=== PATIENT | female | born 1985 | race Caucasian/White ===

== ENCOUNTER 2018-08-14 07:47 | Emergency (ER) | payer SELFPAY ==
[~2018-08-14] VITALS: Ht 172.7 cm; Wt 66.0 kg
[2018-08-14 08:04] VITALS: BP 135/69
[2018-08-14] MEDS ORDERED: ONDANSETRON HCL 4MG/2ML INJ IV STA (08:12)
== END 2018-08-14 08:55 | disposition left against medical advice (07) ==
LOC: ER 07:47
DX: R10.30 Lower abdominal pain, unspecified (principal); Z85.9 Personal history of malignant neoplasm, unspecified; Z88.4 Allergy status to anesthetic agent; Z88.8 Allergy status to other drugs, medicaments and biological substances
CPT/HCPCS: 99281; Z7610; J2405

== ENCOUNTER 2018-08-20 03:53 | Emergency (ER) | payer SELFPAY ==
[~2018-08-20] VITALS: Ht 170.2 cm; Wt 93.0 kg
[2018-08-20] MEDS ORDERED: ACETAMINOPHEN 325MG TABLET PO ONE (06:30)
[2018-08-20] MEDS ORDERED: FAMOTIDINE 20MG TABLET PO ONE (06:45)
[2018-08-20 06:49] VITALS: BP 101/60
[2018-08-20 07:01] LABS: CHLORIDE 111 mEq/L (98-107)
[2018-08-20 07:04] LABS: BASOPHILS % 0.8 % (0.0-2.0); EOSINOPHILS % 6.2 % (0.0-5.0); HEMATOCRIT. 26.5 % (36.0-48.0); HEMOGLOBIN. 8.7 g/dL (12.0-16.0); LYMPHOCYTES % 35.3 % (20.0-50.0); MEAN CORPUSCULAR HEMOGLOBIN 24.2 pg (28.0-32.0); MEAN PLATELET VOLUME 7.7 fl (7.4-10.4); MONOCYTES % 10.8 % (2.0-8.0); NEUTROPHILS % 46.9 % (40.0-76.0); PLATELET 232 x1000/uL (130-400); RED BLOOD CELL COUNT 3.59 mill/uL (4.2-5.4); RED CELL DISTRIBUTION WIDTH 18.3 % (11.6-14.6)
== END 2018-08-20 07:32 | disposition left against medical advice (07) ==
LOC: ER 04:19
DX: D64.9 Anemia, unspecified (principal); R10.13 Epigastric pain; Z59.0 Homelessness; Z88.6 Allergy status to analgesic agent; Z85.42 Personal history of malignant neoplasm of other parts of uterus; Z87.42 Personal history of other diseases of the female genital tract; Z87.19 Personal history of other diseases of the digestive system
CPT/HCPCS: 36415; 84484; 93005; 99284

== ENCOUNTER 2018-08-28 02:36 | Emergency (ER) | payer SELFPAY ==
[~2018-08-28] VITALS: Ht 165.1 cm; Wt 86.0 kg
[2018-08-28 03:32] VITALS: BP 105/58
[2018-08-28] MEDS ORDERED: SODIUM CHLORIDE 0.9% 1,000 ML IV ONE (05:55)
== END 2018-08-28 06:41 | disposition left against medical advice (07) ==
LOC: ER 02:36
DX: R10.13 Epigastric pain (principal); R19.7 Diarrhea, unspecified; Z76.5 Malingerer [conscious simulation]; R03.0 Elevated blood-pressure reading, without diagnosis of hypertension; R46.89 Other symptoms and signs involving appearance and behavior
CPT/HCPCS: 99281; J7030

== ENCOUNTER 2018-08-30 01:31 | Emergency (ER) | payer SELFPAY ==
[~2018-08-30] VITALS: Ht 165.1 cm; Wt 68.0 kg
[2018-08-30 05:00] LABS: BASOPHILS % 0.7 % (0.0-2.0); EOSINOPHILS % 6.6 % (0.0-5.0); HEMATOCRIT. 31.4 % (36.0-48.0); HEMOGLOBIN. 10.1 g/dL (12.0-16.0); MEAN CORPUSCULAR HEMOGLOBIN 23.7 pg (28.0-32.0); MEAN CORPUSCULAR VOLUME 73.9 fL (81.0-99.0); MONOCYTES % 7.8 % (2.0-8.0); NEUTROPHILS % 56.9 % (40.0-76.0); PLATELET 241 x1000/uL (130-400); RED BLOOD CELL COUNT 4.25 mill/uL (4.2-5.4); RED CELL DISTRIBUTION WIDTH 17.3 % (11.6-14.6)
[2018-08-30] MEDS ORDERED: FAMOTIDINE 20MG TABLET PO ONE (05:00)
[2018-08-30] MEDS ORDERED: ACETAMINOPHEN 325MG TABLET PO ONE (05:00)
[2018-08-30 05:02] LABS: CHLORIDE 109 mEq/L (98-107)
[2018-08-30 05:25] VITALS: BP 114/75
== END 2018-08-30 05:58 | disposition home or self-care (01) ==
LOC: ER 01:31
DX: R10.84 Generalized abdominal pain (principal); Z88.6 Allergy status to analgesic agent; Z98.890 Other specified postprocedural states; W01.0XXA Fall on same level from slipping, tripping and stumbling without subsequent striking against object, initial encounter; Y93.89 Activity, other specified; Y92.018 Other place in single-family (private) house as the place of occurrence of the external cause
CPT/HCPCS: 36415; 80053; 83690; 85025; 99283; Z7610

== ENCOUNTER 2018-09-05 02:48 | Emergency (ER) | payer SELFPAY | END 2018-09-05 03:43 | disposition left against medical advice (07) | LOC: ER 02:48 | DX: Z53.21 Procedure and treatment not carried out due to patient leaving prior to being seen by health care provider (principal) ==